=== PATIENT | male | born 1970 | race Caucasian/White ===

== ENCOUNTER 2017-10-06 17:07 | Emergency (ER) | payer OTHER ==
[2017-10-06 17:20] VITALS: BP 146/99; O2SAT 99
--- NOTE | 2017-10-06 17:43 | ED.PDOC ---
History of Present Illness - General Chief Complaint: Lower Extremity Injury Stated Complaint: L knee injury, L foot injury Time Seen by Provider: 10/06/17 17:24 Source: patient, RN notes reviewed, Vital Signs reviewed Exam Limitations: no limitations - History of Present Illness Initial Comments: Patient comes to ER with c/o L knee and foot pain. Yesterday she twisted to get into his truck and felt a pop on the medial aspect of his L knee. Since then it has been painful and swollen. Feels better when leg is straight and with heat. Worse with bending and ice. Today he dropped a 200# block on his L foot. It was in a "cage" and kind of bounced off his foot. He his having a lot of pain in the arch of his foot. Occurred: just prior to arrival Pain - Lower Extremity: moderate: Left Knee, severe: Left Foot Method of Injury: direct blow, twisted Improving Factors: immobilization, rest, other - Heat for knee Worsening Factors: cold therapy, movement Allergies/Adverse Reactions: Allergies Penicillins Allergy (Verified 10/06/17 17:24) Hives Codeine Adverse Reaction (Verified 10/06/17 17:24) Other Causes paranoia Tetanus Toxoid Adverse Reaction (Verified 10/06/17 17:24) Unknown Takes half doses Home Medications: Ambulatory Orders Tramadol HCl 50 mg PO Q6HR PRN #20 tab 10/06/17 Review of Systems - Review of Systems Constitutional: States: no symptoms reported Respiratory: States: no symptoms reported Cardiology: States: no symptoms reported Gastrointestinal/Abdominal: States: no symptoms reported Musculoskeletal: States: see HPI Skin: States: other - blood blister on L foot Neurological: States: numbness - L great toe All other Systems: No Change from Baseline Past Medical History (General) - Patient Medical History Hx Stroke: No Hx Congestive Heart Failure: No Hx Diabetes: No Surgical History: other - Vaccination History Hx Influenza Vaccination: No Hx Pneumococcal Vaccination: No - Social History Hx Tobacco Use: No Family Medical History - Family History Father Living Status: Hx Cardiac Disease: Yes Hx Family Diabetes: Yes Hx Family Cancer: Yes - esophageal CA Physical Exam - Physical Exam General Appearance: Alert, No apparent distress, Well Developed, Well Groomed, Well Hydrated, Well Nourished, Other - In obvious pain Cardiovascular/Respiratory: no respiratory distress Thigh/Hip: normal inspection, non-tender, no evidence of injury, normal ROM Leg: normal inspection, non-tender, no evidence of injury, normal ROM Knee: joint effusion - L knee, limited ROM - flexion, pain, soft tissue tenderness - medial aspect of L knee, swelling Ankle: normal inspection, non-tender, no evidence of injury, normal ROM Foot: bone tenderness - L over midfoot medially, ecchymosis, limited ROM, soft tissue tenderness, swelling Neuro/Tendon: normal sensation, normal motor functions, normal tendon functions , responds to pain, no evidence tendon injury Mental Status: alert, oriented x 3 Skin: normal color, warm/dry Comments: Vital Signs 10/06/17 17:18 Temperature 98.7 F Pulse Rate [ 75 Left Radial] Respiratory 20 Rate Blood Pressure 146/99 [Left Arm] O2 Sat by Pulse 99 Oximetry Progress - Progress Progress: 10/06/17 19:07 Discussed results with patient and if not improving with conservative treatment may need MRI of knee and foot. - EKG/XRAY/CT XRAY: knee - No fracture or dislocation per Radiologist - Additional EKG/XRAY/Consults XRAY #2: L foot: no fracture or dislocation per Radiologist Departure - Departure Clinical Impression: Contusion of left foot, initial encounter Sprain of collateral ligament of left knee Qualifiers: Encounter type: initial encounter Qualified Code(s): S83.402A - Sprain of unspecified collateral ligament of left knee, initial encounter Plantar fascia rupture Qualifiers: Encounter type: initial encounter Laterality: right Qualified Code(s): S96.811A - Strain of other specified muscles and tendons at ankle and foot level , right foot, initial encounter Time of Disposition: 19:08 Disposition: Discharge to Home or Self Care Condition: Good Departure Forms: ED Discharge - Pt. Copy, Patient Portal Self Enrollment Instructions: DI for Knee Sprain, DI for Contusion Diet: resume usual diet Activity: increase activity as tolerated, other - Rest, ice and elevation for 3- 5 days Prescriptions: Tramadol HCl 50 mg PO Q6HR PRN #20 tab PRN Reason: Moderate To Severe Pain Home Medications: Ambulatory Orders Tramadol HCl 50 mg PO Q6HR PRN #20 tab 10/06/17
--- NOTE | 2017-10-06 18:32 | RAD ---
EXAM DESCRIPTION: Foot,Left 3 Views CLINICAL HISTORY: 47 years ,Male Pain after dropping 200# block on it COMPARISON: None. TECHNIQUE: LEFT foot, Three view FINDINGS: No acute fractures or dislocations are identified. No osseous destructive lesions. No radiopaque foreign object noted. No significant ankle effusion noted. IMPRESSION: No acute fracture or dislocation is identified. Electronically signed by: Vy Molina 10/06/2017 6:31 PM [facility]
--- NOTE | 2017-10-06 18:34 | RAD ---
EXAM DESCRIPTION: Knee,Left Complete CLINICAL HISTORY: Pain/swelling after twisting injury COMPARISON: None FINDINGS: 3 views of the left knee and single view of the left foot were submitted. No fracture or dislocation is identified. Bone marrow attenuation is unremarkable. No radiopaque foreign body is identified. IMPRESSION: No acute fracture or dislocation. Electronically signed by: Blaine Adams 10/06/2017 6:33 PM [employer]
[2017-10-06] MEDS ORDERED: traMADol HCL 50 MG TAB PO ONE (18:56)
[2017-10-06 19:24] VITALS: TEMP 98
== END 2017-10-06 19:15 | disposition home or self-care (01) ==
LOC: ER 17:07
DX: S83.402A Sprain of unspecified collateral ligament of left knee, initial encounter (principal); S96.811A Strain of other specified muscles and tendons at ankle and foot level, right foot, initial encounter; S90.32XA Contusion of left foot, initial encounter; Z88.7 Allergy status to serum and vaccine; Z88.0 Allergy status to penicillin; Z88.6 Allergy status to analgesic agent; W20.8XXA Other cause of strike by thrown, projected or falling object, initial encounter; X50.1XXA Overexertion from prolonged static or awkward postures, initial encounter; Y92.9 Unspecified place or not applicable